=== PATIENT | male | born 1980 | race Caucasian/White ===

== ENCOUNTER 2016-11-02 08:43 | Emergency (ER) | payer OTHER ==
--- NOTE | 2016-11-02 09:52 | EDPHY ---
H & P Stated Complaint: R HERNIA FELT POP OUT YESTERDAY AFTER WORK HPI/ROS: CHIEF COMPLAINT: hernia HISTORY OF PRESENT ILLNESS: patient states that he has a right-sided hernia. He says when he got home from work yesterday he noticed some fullness in the right inguinal canal. He says that it goes all the way into the scrotum. It is not painful, nor has it been painful at any time. Did not notice until last night. Has no urinary changes. No nausea or vomiting. No constipation. No pain of any kind in the abdomen, groin or scrotum. There is a mild testicular discomfort. No dysuria. No discharge. No fever or chills. No back pain. No particular modifying factors otherwise. No previous abdominal surgeries. No previous hernia. PREVIOUS ABDOMINAL SURGERIES/DIAGNOSES: None NPO: 7:30 a.m. REVIEW OF SYSTEMS: Ten systems reviewed and are negative unless otherwise noted in the HPI EXAMINATION: General Appearance: Alert, no distress Head: normocephalic, atraumatic Eyes: Pupils equal and round, no conjunctival pallor or injection ENT, Mouth: Mucous membranes moist. Uvula midline. Neck: Normal inspection, supple, non-tender Respiratory: Lungs are clear to auscultation . No wheezing, rhonchi or crackles Cardiovascular: Regular rate and rhythm. No murmur. Pulses intact distally Gastrointestinal: Abdomen is soft and nontender. No tympany. No rigidity. Non- acute abdomen. palpable hernia on the right inguinal canal on right hemiscrotum. Non reducible. Nontender to palpation. Bowel sounds auscultated Neurological: A&O, nonfocal, normal gait Skin: Warm and dry, no rash DIFFERENTIAL DIAGNOSES: Including but not limited to inguinal hernia, incarcerated hernia, strangulated hernia, epididymitis, varicocele, hydrocele, torsion MDM: 9:33 a.m. right-sided inguinal hernia that is nonpainful at rest and nontender to palpation. He has no urinary or bowel changes. No fever. No vomiting. No complaints other than fullness. Ultrasound will be obtained to verify no abnormalities of the testicles. Plan for discharge home with outpatient follow- up with general surgeon. Patient is comfortable with this plan 10:55 a.m. notified by radiologist Dr. Grimaldo of the ultrasound findings. No torsion. No epididymitis. There is hernia in the right inguinal canal but not into the hemiscrotum. I reexamined the patient. He is resting comfortably and still has no pain. No evidence of incarceration or strangulation. Discharged home with instructions follow up with general surgeon early next week. Return to the ER for worsening the scenario including pain, fever, vomiting, constipation. Patient is comfortable with this plan. ED Precautions: onset of pain. Constipation. Vomiting. Fever SUPERVISION: This patient was independently evaluated without the aide of supervising physician.Case discussed with Dr. House Source: Patient Exam Limitations: No limitations - Personal History Current Tetanus/Diphtheria Vaccine: Unsure Current Tetanus Diphtheria and Acellular Pertussis (TDAP): Unsure - Medical/Surgical History Hx Asthma: No Hx Chronic Respiratory Disease: No Hx Diabetes: No Hx Cardiac Disease: No Hx Renal Disease: No Hx Cirrhosis: No Hx Alcoholism: No Hx HIV/AIDS: No Hx Splenectomy or Spleen Trauma: No Other PMH: DENIES - Social History Smoking Status: Never smoked Constitutional: Initial Vital Signs Temperature (C) 97.9 F 11/02/16 08:46 Heart Rate 92 11/02/16 08:46 Respiratory Rate 18 11/02/16 08:46 Blood Pressure 185/97 H 11/02/16 08:46 O2 Sat (%) 95 11/02/16 08:46 O2 Delivery Mode Room Air Allergies/Adverse Reactions: No Known Allergies Allergy (Unverified 11/02/16 08:48) Home Medications: Medication Instructions Recorded NK [No Known Home Meds] 11/02/16 Departure - Departure Disposition: Home, Routine, Self-Care Clinical Impression: Hernia, inguinal, right Condition: Good Instructions: Inguinal Hernia (ED) Additional Instructions: return to the ER for any pain, fever, vomiting or constipation Referrals: NONE *PRIMARY CARE P,. [Primary Care Provider] - As per Instructions Josemanuel Barksdale MD [Medical Doctor] - As per Instructions Stand Alone Forms: Work Limited Duty
[2016-11-02 11:21] VITALS: BP 123/64; PULSE 88; RESP 16; TEMP 97.7; O2SAT 98
== END 2016-11-02 11:20 | disposition home or self-care (01) ==
DX: K40.90 Unilateral inguinal hernia, without obstruction or gangrene, not specified as recurrent (principal)

== ENCOUNTER 2016-11-03 07:51 | Observation (INO) | payer BC, OTHER ==
[2016-11-03] MEDS ORDERED: HYDROmorphONE/DILAUDID 1 MG/ML SYR IVP ONE (08:42)
[2016-11-03 09:04] LABS: % IMMATURE GRANULYOCYTES 0.2 % (0.0-1.1); ABSOLUTE IMMATURE GRANULOCYTES 0.02 10^3/uL (0.00-0.10); ADD DIFF? NO; ADD MORPH? NO; ADD SCAN? NO; ATYPICAL LYMPHOCYTE FLAG 0 (0-99); FRAGMENT RBC FLAG 0 (0-99); HEMATOCRIT 52.6 % (40.0-51.0); HEMOGLOBIN 18.5 g/dL (13.7-17.5); LEFT SHIFT FLG 0 (0-99); LIPEMIA HEMOLYSIS FLAG 90 (0-99); MEAN CELL HEMOGLOBIN 29.7 pg (27.9-34.1); MEAN CELL HEMOGLOBIN CONCENTR. 35.2 g/dL (32.4-36.7); MEAN CELL VOLUME 84.4 fL (81.5-99.8); MEAN PLATELET VOLUME 11.6 fL (8.7-11.7); PLATELET CLUMPS FLAG 0 (0-99); PLATELET COUNT 210 10^3/uL (150-400); RED BLOOD CELL COUNT 6.23 10^6/uL (4.40-6.38); RED CELL DISTRIBUTION WIDTH 13.1 % (11.5-15.2)
[2016-11-03] MEDS ORDERED: BUPIVACAINE/EPI 0.25% 30 ML SDV ONE (09:04)
--- NOTE | 2016-11-03 09:07 | EDPHY ---
H & P Stated Complaint: increased groin pain since inguinal hernia dx 11/02 HPI/ROS: Chief complaint: Hernia pain History of present illness: This is a 36-year-old male who presents to the emergency department for evaluation of hernia pain. Patient was seen in this emergency department yesterday for fullness in the scrotum. Ultrasound confirmed a right inguinal hernia. He was ultimately discharged home to follow up with surgery on an outpatient basis. This morning he woke up and he had increased swelling to the scrotum and he has now developed pain which he did not have yesterday. He has not had a bowel movement few days as well. He denies precipitating factors. He denies alleviating factors. He denies other associated signs or symptoms. Review of systems: A 10 point review of systems was obtained and other than described above was negative - Personal History Current Tetanus/Diphtheria Vaccine: Unsure Current Tetanus Diphtheria and Acellular Pertussis (TDAP): Unsure - Medical/Surgical History Hx Asthma: No Hx Chronic Respiratory Disease: No Hx Diabetes: No Hx Cardiac Disease: No Hx Renal Disease: No Hx Cirrhosis: No Hx Alcoholism: No Hx HIV/AIDS: No Hx Splenectomy or Spleen Trauma: No Other PMH: DENIES - Social History Smoking Status: Never smoked - Physical Exam Exam: General Appearance: Alert, nontoxic. Eyes: Pupils equal and round no pallor or injection. ENT, Mouth: Mucous membranes moist. Respiratory: There are no retractions, lungs are clear to auscultation. Cardiovascular: Regular rate and rhythm. Gastrointestinal: Abdomen is soft and nontender, no masses, bowel sounds normal. Genitourinary: Hernia noted in the scrotal region non reducible Neurological: Alert and oriented. Skin: Warm and dry, no rashes. Musculoskeletal: Neck is supple nontender. Extremities are symmetrical, full range of motion. Psychiatric: Patient is oriented X 3, there is no agitation. Constitutional: Initial Vital Signs Temperature (C) 36.8 C 11/03/16 08:03 Heart Rate 82 11/03/16 08:03 Respiratory Rate 16 11/03/16 08:03 Blood Pressure 149/98 H 11/03/16 08:03 O2 Sat (%) 95 11/03/16 08:03 O2 Delivery Mode Room Air Allergies/Adverse Reactions: No Known Allergies Allergy (Verified 11/03/16 08:03) Home Medications: Medication Instructions Recorded NK [No Known Home Meds] 11/02/16 Medical Decision Making ED Course/Re-evaluation: Patient seen under the supervision of my primary supervising physician Dr. Sonia Mccall. Patient presents to the emergency department for pain after recently being diagnosed with an inguinal hernia. He does appear to have a non reducible inguinal hernia on my examination. On-call surgery, Dr. Corbin is consulted. He has seen patient. He plans to take him to the operating room today. Patient is admitted to him for further evaluation and care. The plan has been discussed with the patient voiced understanding and agreement with it. Differential Diagnosis: Included but not limited to inguinal hernia, incarcerated hernia, strangulated hernia - Data Points Laboratory Results: 11/03/16 11/03/16 08:50 08:50 WBC Pending RBC Pending Hgb Pending Hct Pending MCV Pending MCH Pending MCHC Pending RDW Pending Plt Count Pending MPV Pending Neut % (Auto) Pending Lymph % (Auto) Pending Barrow % (Auto) Pending Eos % (Auto) Pending Baso % (Auto) Pending Nucleat RBC Rel Count Pending Absolute Neuts (auto) Pending Absolute Lymphs (auto) Pending Absolute Monos (auto) Pending Absolute Eos (auto) Pending Absolute Basos (auto) Pending Absolute Nucleated RBC Pending Immature Gran % Pending Immature Gran # Pending Sodium Pending Potassium Pending Chloride Pending Carbon Dioxide Pending Anion Gap Pending BUN Pending Creatinine Pending Estimated GFR Pending Glucose Pending Calcium Pending Departure - Departure Disposition: Home, Routine, Self-Care Clinical Impression: Inguinal hernia Qualifiers: Obstruction and gangrene presence: without obstruction or gangrene Laterality: unilateral Recurrence: not specified as recurrent Qualified Code(s): K40.90 - Unilateral inguinal hernia, without obstruction or gangrene, not specified as recurrent Condition: Fair Referrals: NONE *PRIMARY CARE P,. [Primary Care Provider] - As per Instructions
[2016-11-03 09:13] LABS: ANION GAP 12 mEq/L (8-16); CALCIUM 9.8 mg/dL (8.5-10.4); CARBON DIOXIDE 25 mEq/l (22-31); CHLORIDE 106 mEq/L (97-110); CREATININE 0.8 mg/dL (0.7-1.3); GLOMERULAR FILTRATION RATE > 60; GLUCOSE 99 mg/dL (70-100); POTASSIUM 4.3 mEq/L (3.5-5.2); SODIUM 143 mEq/L (134-144)
[2016-11-03] MEDS ORDERED: LIDOCAINE 2% 5 ML SDV ONE (09:28)
[2016-11-03] MEDS ORDERED: KETOROLAC 30 MG/1 ML SDV ONE (09:28)
[2016-11-03] MEDS ORDERED: DEXAMETHASONE 4 MG/ML VIAL ONE (09:28)
[2016-11-03] MEDS ORDERED: ONDANSETRON 4 MG/2 ML VIAL ONE (09:28)
[2016-11-03] MEDS ORDERED: fentaNYL 100 MCG/2 ML INJ ONE ×3 (09:29→11:52)
[2016-11-03] MEDS ORDERED: PROPOFOL 200 MG/20 ML VIAL ONE (09:29)
[2016-11-03] MEDS ORDERED: MIDAZOLAM 2 MG/2 ML VIAL ONE (09:31)
[2016-11-03] MEDS ORDERED: CEFAZOLIN 2 GM/DEXTROSE/100 ML BAG IV ONE (09:35)
[2016-11-03] MEDS ORDERED: ceFAZolin 2 GM/DEXTROSE 100 ML IV ONE (09:35)
--- NOTE | 2016-11-03 09:37 | GHP ---
DATE OF ADMISSION: 11/03/2016 CHIEF COMPLAINT: Right groin pain. HISTORY OF PRESENT ILLNESS: This is a 36-year-old male who presents to the emergency department for the second time in as many days for right inguinal pain. He was previously seen yesterday where he was diagnosed with an indirect inguinal hernia verified by ultrasound. At that point in time, he h ad minimal to no pain, had no obstructive symptoms, and was sent home with followup with General Rosamaria white next week. He states that since that point in time he went home that the hernia has enlarged a nd now has become excruciatingly painful that he rates it 10/10 without radiation. He states that h e awoke this morning, slept poorly overnight, and presents mainly with pain. He denies having fever s, chills, nausea, vomiting, and is here for definitive repair. PAST MEDICAL HISTORY: None. PAST SURGICAL HISTORY: None. ALLERGIES: None. CURRENT MEDICATIONS: None. PHYSICAL EXAMINATION: VITAL SIGNS: Temperature 36.8, blood pressure 149/98, heart rate 82, and he is 95% on room air. GENERAL: He is alert and oriented, in mild distress. CV: He has a regular ra te and rhythm without any murmurs. LUNGS: Clear. ABDOMEN: Soft, nontender, nondistended. His ri ght groin has a palpable tender bulge without any overt skin changes extending into the right scrotu m. This is non reducible to palpation and extremely tender. The left groin appears normal without a ny palpable bulges or visible defects. EXTREMITIES: Warm. IMAGING: He had a right groin ultrasound yesterday which showed a right indirect inguinal hernia co ntaining bowel with a large defect. ASSESSMENT AND PLAN: A 36-year-old male with acutely incarcerated right inguinal hernia. After dis cussing the risks, benefits, and alternatives, will plan to proceed urgently to the operating room t lionel for repair. I did tell him that if there was minimal contamination and no free fluid we would plan to proceed with mesh repair. If not, he will receive a tissue repair. He understands that the re is a higher recurrence rate with tissue repair, but understands the acute nature and urgent need for operation today. /[id number]/MODL
[2016-11-03] MEDS ORDERED: ONDANSETRON 4 MG/2 ML VIAL IVP PRN (12:04)
[2016-11-03] MEDS ORDERED: OXYCODONE/APAP 5/325 TAB PO PRN (12:04)
--- NOTE | 2016-11-03 12:04 | POSTOPPROG ---
Post Op Note Date of Operation: 11/03/16 Surgeon: Octavio Corbin Anesthesiologist: Vincenzo Anesthesia: GET(General Endotracheal) Pre-op Diagnosis: Incarcerated RIH Post-op Diagnosis: same Procedure: right inguinal hernia repair with mesh Findings: incarcerated inguinal hernia, reduced, ligated, repaired with mesh Inf/Abcess present in the surg proc area at time of surgery?: No EBL: Minimal
--- NOTE | 2016-11-03 13:28 | GOP ---
DATE OF OPERATION: 11/03/2016 SURGEON: Octavio Corbin MD SENIOR RESEARCH MANAGER: None. ANESTHESIA: LMA. ANESTHESIOLOGIST: Tim Loya MD PREOPERATIVE DIAGNOSIS: Incarcerated right inguinal hernia. POSTOPERATIVE DIAGNOSIS: Incarcerated right inguinal hernia. PROCEDURE PERFORMED: Open right inguinal hernia repair with mesh. FINDINGS: Large indirect inguinal hernia sac incapable of reduction preoperatively. Completely reduced. Sac highly ligated. Defect repaired with Parietex site-specific ProGrip mesh. SPECIMENS: None. ESTIMATED BLOOD LOSS: 30 cc. DESCRIPTION OF PROCEDURE: The patient was greeted in the preoperative suite. Once again, risks, benefits, and alternatives were discussed. He was then brought back to the operative suite, placed on the OR table in a supine position. After all anesthesia machines, including SCDs, were on and functioning, a [employer] time-out was performed, ending with all in agreement. Anesthesia was then induced without incident. I attempted to reduce the hernia after induction and was incapable of doing so. After prepping and draping the right groin in the typical sterile fashion, I made an incision extending from the pubic tubercle, approximately 4 cm laterally. I carried it down to the subcutaneous tissue where I encountered the fibers of the external oblique fascia. These were opened in the direction of the fibers where the external ring was identified. At this point in time, it was apparent that there was a large hernia sac within the cord structures. Cord structures were then successfully encircled, including the hernia itself, with a Alpine drain. Once this was done, I meticulously identified a hernia sac which was densely adherent to the patient's right testicle. I ended up having to bring the right testicle into the operative field where I was successful in removing the adherent sac from the testicle proper and then put it back into the scrotum. After this, I did identify the cord structures, including the vas deferens, and protected them throughout. The hernia sac was densely adherent to them throughout the procedure. After dissecting the hernia sac all the way down to the internal ring, I opened the sac, I did not identify any organs noted at this time, and then I highly ligated it and amputated the remainder of the residual sac and passed it off. Hemostasis was noted to be excellent. I then allowed the sac to return to the abdominal cavity. I examined the inguinal floor. I did not find any denise direct defects. After creating a space just deep to the external oblique, I brought a site-specific Parietex ProGrip mesh into the field. I attached it to the pubic tubercle with an interrupted 0 Vicryl stitch. I then had it lay along the inguinal floor, along the inguinal ligament, having excellent overlap of the medial portion of the conjoined tendon. I then recreated the internal ring with the mesh itself, noting that it was not too snug around the cord structures. Once this was done , I ensured that the entire mesh laid flat without any kinks or defects. I identified both the ilioinguinal and iliohypogastric nerves and left in situ. I once again made sure that the right testicle was within the scrotum. I achieved hemostasis with gentle pressure and electrocautery. I used 0.25% Marcaine throughout the procedure to provide a field block. Once the repair was successful, I closed the external oblique fibers with a running 2-0 Vicryl stitch. I then closed the underlying subcutaneous tissue with a running 3-0 Vicryl, and the skin with a running subcuticular 4-0 Monocryl, over which Steri- Strips and Mastisol were placed and covered with a sterile dressing. The patient was then extubated in the operative suite and taken to the PACU in satisfactory condition. DRAINS: None. COUNTS: All counts were reported as correct x2. /[id number]/MODL MTDD
[2016-11-03 14:56] VITALS: RESP 15; O2SAT 92
[2016-11-03] MEDS ORDERED: DOCUSATE SODIUM 100 MG CAP PO SCH (16:00)
[2016-11-03 16:27] VITALS: BP 153/72; PULSE 89; TEMP 98.1
== END 2016-11-03 16:47 | disposition home or self-care (01) ==
LOC: F3N 12:42
PROVIDERS: ADMIT Surgery; ATTEND Surgery
PROC: 0YU60JZ Supplement Left Inguinal Region with Synthetic Substitute, Open Approach (ICD-10-PCS; principal; 2016-11-03 09:42)
DX: K40.30 Unilateral inguinal hernia, with obstruction, without gangrene, not specified as recurrent (principal)
CPT/HCPCS: 96374; C1781; J0690; J1100; J1170; J1885; J2250; J2405; J2704; J3010